=== PATIENT | female | born 1990 | race African-American/Black ===

== ENCOUNTER 2020-03-12 11:20 | Emergency (ER) | payer SELFPAY ==
--- NOTE | 2020-03-12 12:21 | EDM.PDOC ---
ED HPI GENERAL MEDICAL PROBLEM - General Chief Complaint: Cardiovascular Problem Stated Complaint: FAST HEART RATE/PAIN ON LEFT SIDE Time Seen by Provider: 03/12/20 11:33 Source of Information: Reports: Patient, RN Notes Reviewed History Limitations: Reports: No Limitations - History of Present Illness INITIAL COMMENTS - FREE TEXT/NARRATIVE: Patient is a 29 year old female presenting the the ER with c/o constant chest pain since March 2019. She describes it as a constant dull ache below her left breast and around to her left mid back that worsens with exercise. The area of discomfort is tender to palpation but does not worsen with deep breathing. She has seen her PCP, Dr. Connie Simpson, for this c/o in October of 2019. She states that they did blood work, an EKG, and a holter monitor but found nothing abnormal. She has been using Tylenol daily with little relief. Denies SOB, diaphoresis, nausea, or vomiting associated with that pain. She has no chronic medical conditions. Left Upper Chest Pain Score (Numeric/FACES): 9 - Related Data Allergies Allergy/AdvReac Type Severity Reaction Status Date / Time No Known Allergies Allergy Verified 03/12/20 11:41 Home Meds: Home Meds Meloxicam 7.5 mg PO DAILY 03/12/20 [History] Naproxen [Naprosyn] 500 mg PO Q12HR 5 Days #10 tab 03/12/20 [Rx] Past Medical History - Past Health History Medical/Surgical History: Denies Medical/Surgical History Other [employer] History: x 2 Social & Family History - Family History Cardiac: Reports: Hypertension - Tobacco Use Tobacco Use Status *Q: Never Tobacco User Second Hand Smoke Exposure: No - Caffeine Use Caffeine Use: Reports: Coffee Caffeine Use Comment: She drinks coffee occasionally--not daily. No other caffeine use. - Recreational Drug Use Recreational Drug Use: No ED ROS GENERAL - Review of Systems Review Of Systems: See Below Constitutional: Reports: No Symptoms. Denies: Fever, Chills, Weakness, Decreased Appetite HEENT: Reports: No Symptoms Respiratory: Reports: No Symptoms. Denies: Shortness of Breath, Cough Cardiovascular: Reports: Chest Pain. Denies: Dyspnea on Exertion, Lightheadedness, Palpitations, Syncope Endocrine: Reports: No Symptoms GI/Abdominal: Reports: No Symptoms. Denies: Abdominal Pain, Nausea, Vomiting : Reports: No Symptoms Musculoskeletal: Reports: Back Pain Skin: Reports: No Symptoms Neurological: Reports: No Symptoms. Denies: Dizziness, Headache Psychiatric: Reports: No Symptoms Hematologic/Lymphatic: Reports: No Symptoms Immunologic: Reports: No Symptoms ED EXAM, GENERAL - Physical Exam Exam: See Below Exam Limited By: No Limitations General Appearance: Alert, WD/WN, No Apparent Distress Respiratory/Chest: No Respiratory Distress, Lungs Clear, Normal Breath Sounds, No Accessory Muscle Use, Other (tenderness to palpation below the left breast) Cardiovascular: Normal Peripheral Pulses, Regular Rate, Rhythm, No Edema, No Gallop, No JVD, No Murmur, No Rub GI/Abdominal: Normal Bowel Sounds, Soft, Non-Tender, No Organomegaly, No Distention, No Abnormal Bruit, No Mass Extremities: Normal Inspection, Normal Range of Motion, Non-Tender, Normal Capillary Refill, No Pedal Edema Neurological: Alert, Oriented, CN II-XII Intact, Normal Cognition, Normal Gait, Normal Reflexes, No Motor/Sensory Deficits Psychiatric: Normal Affect, Normal Mood Skin Exam: Warm, Dry, Intact, Normal Color, No Rash #1 Interpretation EKG Date: 03/12/20 Time: 11:57 Rhythm: NSR Rate (Beats/Min): 82 [place]: Normal P-Wave: Present QRS: Normal ST-T: Normal QT: Normal Comparison: NA - No Prior EKG Course - Vital Signs Last Recorded V/S: Last Vital Signs Temp 97.6 F 03/12/20 11:36 Pulse 90 03/12/20 11:36 Resp 19 03/12/20 11:36 BP 142/80 H 03/12/20 11:36 Pulse Ox 100 03/12/20 11:36 - Orders/Labs/Meds Orders: Active Orders 24 hr Category Date Time Status EKG Documentation Completion [RC] STAT Care 03/12/20 11:42 Active Labs: Laboratory Tests 03/12/20 03/12/20 03/12/20 Range/Units 12:05 12:05 12:05 WBC 6.33 (3.98-10.04) K/mm3 RBC 5.02 (3.98-5.22) M/mm3 Hgb 13.5 (11.2-15.7) gm/dl Hct 41.8 (34.1-44.9) % MCV 83.3 (79.4-94.8) fl MCH 26.9 (25.6-32.2) pg MCHC 32.3 (32.2-35.5) g/dl RDW Std Deviation 46.7 H (36.4-46.3) fL Plt Count 269 (182-369) K/mm3 MPV 10.4 (9.4-12.3) fl Neut % (Auto) 55.6 (34.0-71.1) % Lymph % (Auto) 30.5 (19.3-51.7) % [place] % (Auto) 12.6 H (4.7-12.5) % Eos % (Auto) 0.6 L (0.7-5.8) Baso % (Auto) 0.5 (0.1-1.2) % Neut # (Auto) 3.52 (1.56-6.13) K/mm3 Lymph # (Auto) 1.93 (1.18-3.74) K/mm3 [place] # (Auto) 0.80 H (0.24-0.36) K/mm3 Eos # (Auto) 0.04 (0.04-0.36) K/mm3 Baso # (Auto) 0.03 (0.01-0.08) K/mm3 D-Dimer, Quantitative 0.42 (0.19-0.50) mg/L Sodium 142 (136-145) mEq/L Potassium 4.0 (3.5-5.1) mEq/L Chloride 104 (98-107) mEq/L Carbon Dioxide 29 (21-32) mEq/L Anion Gap 13.0 (5-15) BUN 8 (7-18) mg/dL Creatinine 1.0 (0.55-1.02) mg/dL Est Cr Clr Drug Dosing 80.72 mL/min Estimated GFR (MDRD) > 60 (>60) mL/min BUN/Creatinine Ratio 8.0 L (14-18) Glucose 97 (74-106) mg/dL Calcium 8.9 (8.5-10.1) mg/dL Total Bilirubin 0.6 (0.2-1.0) mg/dL AST 18 (15-37) U/L ALT 29 (14-59) U/L Alkaline Phosphatase 99 (46-116) U/L Troponin I < 0.017 (0.00-0.056) ng/mL C-Reactive Protein 1.1 H* (<1.0) mg/dL Total Protein 8.2 (6.4-8.2) g/dl Albumin 3.8 (3.4-5.0) g/dl Globulin 4.4 gm/dL Albumin/Globulin Ratio 0.9 L (1-2) Lipase (73-393) U/L 03/12/20 Range/Units 12:05 WBC (3.98-10.04) K/mm3 RBC (3.98-5.22) M/mm3 Hgb (11.2-15.7) gm/dl Hct (34.1-44.9) % MCV (79.4-94.8) fl MCH (25.6-32.2) pg MCHC (32.2-35.5) g/dl RDW Std Deviation (36.4-46.3) fL Plt Count (182-369) K/mm3 MPV (9.4-12.3) fl Neut % (Auto) (34.0-71.1) % Lymph % (Auto) (19.3-51.7) % [place] % (Auto) (4.7-12.5) % Eos % (Auto) (0.7-5.8) Baso % (Auto) (0.1-1.2) % Neut # (Auto) (1.56-6.13) K/mm3 Lymph # (Auto) (1.18-3.74) K/mm3 [place] # (Auto) (0.24-0.36) K/mm3 Eos # (Auto) (0.04-0.36) K/mm3 Baso # (Auto) (0.01-0.08) K/mm3 D-Dimer, Quantitative (0.19-0.50) mg/L Sodium (136-145) mEq/L Potassium (3.5-5.1) mEq/L Chloride (98-107) mEq/L Carbon Dioxide (21-32) mEq/L Anion Gap (5-15) BUN (7-18) mg/dL Creatinine (0.55-1.02) mg/dL Est Cr Clr Drug Dosing mL/min Estimated GFR (MDRD) (>60) mL/min BUN/Creatinine Ratio (14-18) Glucose (74-106) mg/dL Calcium (8.5-10.1) mg/dL Total Bilirubin (0.2-1.0) mg/dL AST (15-37) U/L ALT (14-59) U/L Alkaline Phosphatase (46-116) U/L Troponin I (0.00-0.056) ng/mL C-Reactive Protein (<1.0) mg/dL Total Protein (6.4-8.2) g/dl Albumin (3.4-5.0) g/dl Globulin gm/dL Albumin/Globulin Ratio (1-2) Lipase 116 (73-393) U/L - Re-Assessments/Exams Free Text/Narrative Re-Assessment/Exam: 03/12/20 13:09 Hematology was grossly unremarkable. EKG and chest x-ray were both normal. My suspicion is that this is chest wall pain given her tenderness to palpation over the chest wall.. I will send a prescription for Naprosyn. Recommend follow-up with her primary care provider and discussed the possibility of an outpatient stress test given her report of the pain worsening with exercise. Discussed return precautions. Discharge instructions as documented. Departure - Departure Time of Disposition: 13:11 Disposition: Home, Self-Care 01 Condition: Good Clinical Impression: Atypical chest pain Prescriptions: Naproxen [Naprosyn] 500 mg PO Q12HR 5 Days #10 tab Instructions: Chest Wall Pain, [id number] Referrals: Connie Simpson MD [Primary Care Provider] - Forms: ED Department Discharge Additional Instructions: You were seen in the emergency department for left-sided chest pain since March of last year. Work-up included blood work, chest x-ray, EKG. Results of your work-up were found to be normal. I suspect that the pain you are experiencing is coming from your chest wall as opposed to your heart, however I would recommend follow-up with your primary care provider to discuss an outpatient stress test. In the meantime, prescription for Naprosyn has been sent to clinic pharmacy. Take this medication as prescribed. If you should experience any new or worsening symptoms of concern, please not hesitate to return to the emergency department. Sepsis Event Note (ED) - Evaluation Sepsis Screening Result: No Definite Risk - Focused Exam Vital Signs: Vital Signs Temp Pulse Resp BP Pulse Ox 03/12/20 11:36 97.6 F 90 19 142/80 H 100 - My Orders Last 24 Hours: My Active Orders 03/12/20 11:42 EKG Documentation Completion [RC] STAT - Assessment/Plan Last 24 Hours: My Active Orders 03/12/20 11:42 EKG Documentation Completion [RC] STAT
--- NOTE | 2020-03-12 12:43 | CR ---
Chest: 2 views of the chest are obtained. Comparison: No previous chest imaging is available. Heart size and mediastinum are normal. Lungs are clear with no acute parenchymal change. No acute bony abnormality is appreciated. Impression: 1. Nothing acute is appreciated on 2 view chest x-ray. Diagnostic code #1
== END 2020-03-12 13:20 | disposition home or self-care (01) ==
LOC: JD.ED 11:20
DX: R07.89 Other chest pain (principal); Z79.899 Other long term (current) drug therapy
CPT/HCPCS: 36415; 71046; 71046-26; 80053; 83690; 84484; 85025; 85379; 86140; 93005; 93010; 99284; 99285-25